=== PATIENT | female | born 1990 | race Caucasian/White ===

== ENCOUNTER 2024-06-08 17:37 | Emergency (ER) | payer MEDICAID ==
[~2024-06-08] VITALS: Ht 172.7 cm; Wt 68.0 kg
[~2024-06-08 17:37] MED LIST: PROZAC PO
[2024-06-08] MEDS ORDERED: NAPR500T6 PO (20:04)
[2024-06-08 20:09] VITALS: BP 133/69; O2SAT 99
== END 2024-06-08 20:10 | disposition home or self-care (01) ==
LOC: ER 17:37
DX: S73.191A Other sprain of right hip, initial encounter (principal); F32.A Depression, unspecified; G89.29 Other chronic pain; X58.XXXA Exposure to other specified factors, initial encounter; Y93.89 Activity, other specified; Y92.89 Other specified places as the place of occurrence of the external cause; Y99.8 Other external cause status
CPT/HCPCS: 72192; A4606; A4663

== ENCOUNTER 2024-10-11 03:55 | Emergency (ER) | payer MEDICAID ==
[~2024-10-11] VITALS: Ht 172.7 cm; Wt 61.2 kg
[~2024-10-11 03:55] MED LIST changes: +NAPR500T6 PO
[2024-10-11] MEDS ORDERED: ONDANSETRON 4 MG/2 ML VIAL ONE (04:34)
[2024-10-11 04:46] LABS: BASOPHILS % (AUTO) 0.3 % (0.0-2.0); EOSINOPHILS # (AUTO) 0.1 K/uL (0.0-0.7); EOSINOPHILS % (AUTO) 1.5 % (0.0-7.0); HEMATOCRIT 42.2 % (31.2-41.9); HEMOGLOBIN 13.9 g/dL (10.9-14.3); LYMPHOCYTES # (AUTO) 0.5 K/uL (0.8-4.8); LYMPHOCYTES % (AUTO) 6.9 % (20.5-51.5); MEAN CORPUSCULAR HEMOGLOBIN 29.7 uug (24.7-32.8); MEAN CORPUSCULAR HGB CONC 33 g/dL (32.3-35.6); MEAN CORPUSCULAR VOLUME 90.5 fL (75.5-95.3); MONOCYTES # (AUTO) 0.6 K/uL (0.1-1.30); MONOCYTES % (AUTO) 8.3 % (0.0-11.0); NEUTROPHILS # (AUTO) 5.6 K/uL (1.8-8.9); PLATELET COUNT (AUTO) 270 K/uL (179-408); RED BLOOD CELL COUNT(AUTO) 4.66 MIL/uL (3.63-4.92); RED CELL DISTRIBUTION WIDTH 13.2 % (12.3-17.7); WHITE BLOOD COUNT (AUTO) 6.8 K/uL (3.8-11.8)
[2024-10-11 04:49] LABS: DIFFERENTIAL COMMENT 1
[2024-10-11 04:54] LABS: CARBON DIOXIDE 30 mmol/L (21-32); CHLORIDE 104 mmol/L (98-107); GLUCOSE 97 mg/dL (74-106); POTASSIUM 3.3 mmol/L (3.5-5.1); SODIUM SERUM 140 mmol/L (136-145); UREA NITROGEN, BLOOD 16 mg/dL (7-18)
[2024-10-11 04:57] LABS: ETHANOL < 3 MG/DL (0-10)
[2024-10-11 05:00] LABS: ALANINE AMINOTRANSFERASE 18 U/L (14-59); ALBUMIN 3.7 g/dL (3.4-5.0); ALKALINE PHOSPHATASE 70 U/L (50-136); ASPARTATE AMINOTRANSFERASE 21 U/L (15-37); BILIRUBIN,TOTAL 0.4 mg/dL (0.2-1.0); LIPASE 24 U/L (16-77); TOTAL PROTEIN, SERUM 7.3 g/dL (6.4-8.2)
[2024-10-11] MEDS: IV NS 1000 ML 1,000 ML IV ONE (05:04)
[2024-10-11] MEDS: ONDANSETRON 4 MG/2 ML VIAL IV ONE (05:04)
[2024-10-11] MEDS ORDERED: POTASSIUM CHLORIDE 20 MEQ TAB.PRT.SR ONE (05:25)
[2024-10-11] MEDS: POTASSIUM CHLORIDE 20 MEQ TAB.PRT.SR PO ONE (05:30)
[2024-10-11 06:46] LABS: *URINE HCG, QUAL NEGATIVE (NEGATIVE)
[2024-10-11 06:52] LABS: *CLARITY,URINE CLEAR (CLEAR); *COLOR,URINE YELLOW (YELLOW)
[2024-10-11 06:54] LABS: *BILIRUBIN,URIN 1+ (NEGATIVE); *BLOOD, URINE NEGATIVE (NEGATIVE); *KETONES,URINE TRACE (NEGATIVE); *PROTEIN,URINE 2+ (NEGATIVE); *UROBILINOGEN,URINE 0.2 E.U./dl (NORMAL); UGLUCOSE NEGATIVE (NEGATIVE)
[2024-10-11 06:55] LABS: LEUKOCYTE ESTERASE ,URINE NEGATIVE (NEGATIVE); NITRITE, URINE NEGATIVE (NEGATIVE)
[2024-10-11] MEDS ORDERED: SWABABLE VALVE TRANSFER SET EA MC ONE (06:55)
[2024-10-11] MEDS ORDERED: IOHEXOL 300MG/ML 100 ML INFUS..BTL ONE (06:55)
[2024-10-11] MEDS ORDERED: IV NORMAL SALINE 250 ML IV ONE (06:57)
[2024-10-11 06:59] LABS: *AMPHETAMINE, URINE NEGATIVE (NEGATIVE); *BARBITURATE, URINE NEGATIVE (NEGATIVE); *BENZODIAZEPINE, URINE NEGATIVE (NEGATIVE); *CANNABINOID, URINE NEGATIVE (NEGATIVE); *COCCAINE, URINE NEGATIVE (NEGATIVE); *OPIATE, URINE NEGATIVE (NEGATIVE); *PHENCYCLIDINE SCREEN,URINE NEGATIVE (NEGATIVE); FENTANYL, URINE NEGATIVE (NEGATIVE)
[2024-10-11 07:23] LABS: BACTERIA,URINE MODERATE /HPF (NONE SEEN); CALCIUM OXALATE CRYSTALS,UR MODERATE /HPF (NONE SEEN); SQUAMOUS EPITHELIAL CELL,UR FEW /HPF (NONE SEEN); WBC,URINE 0-3 /HPF (0-3)
[2024-10-11] MEDS ORDERED: ONDA4TAB5 PO (08:10)
[2024-10-11] MEDS ORDERED: PANT20TA2 PO (08:10)
[2024-10-11 08:19] VITALS: BP 102/47; O2SAT 98
== END 2024-10-11 08:20 | disposition home or self-care (01) ==
LOC: ER 03:55
DX: K52.9 Noninfective gastroenteritis and colitis, unspecified (principal); Z79.899 Other long term (current) drug therapy; Z87.09 Personal history of other diseases of the respiratory system; Z87.39 Personal history of other diseases of the musculoskeletal system and connective tissue; Z20.822 Contact with and (suspected) exposure to COVID-19
CPT/HCPCS: 80053; 81001; 84703; 83690; 85025; 87426; 87086; 36415; 74177; 99285; 96361; 96374; 80320; 80307; J2405; Q9967; J7040; A4606; A4663; G0480

== ENCOUNTER 2025-02-17 15:54 | Emergency (ER) | payer MEDICAID, OTHER ==
[~2025-02-17] VITALS: Ht 172.7 cm; Wt 61.2 kg
[~2025-02-17 15:54] MED LIST changes: +ONDA4TAB5 PO; +PANT20TA2 PO
[2025-02-17 16:01] VITALS: BP 110/71
[2025-02-17 16:58] VITALS: BP 108/65; O2SAT 98
== END 2025-02-17 16:58 | disposition home or self-care (01) ==
LOC: ER 16:04
DX: F43.10 Post-traumatic stress disorder, unspecified (principal); M25.551 Pain in right hip; Z79.899 Other long term (current) drug therapy; Z87.01 Personal history of pneumonia (recurrent); Z87.39 Personal history of other diseases of the musculoskeletal system and connective tissue
CPT/HCPCS: A4606; A4663

== ENCOUNTER 2025-02-19 11:52 | Emergency (ER) | payer OTHER ==
[~2025-02-19] VITALS: Ht 172.7 cm; Wt 62.1 kg
[2025-02-19 11:58] VITALS: BP 108/68
[2025-02-19] MEDS ORDERED: DEXT5TAB15 PO ×2 (12:18→12:19)
[2025-02-19] MEDS ORDERED: FLUO40CA8 PO (12:18)
[2025-02-19 12:35] VITALS: BP 108/68; TEMP 97.8; O2SAT 99
== END 2025-02-19 12:37 | disposition home or self-care (01) ==
LOC: ER 11:52
DX: F43.9 Reaction to severe stress, unspecified (principal); Z76.0 Encounter for issue of repeat prescription; Z79.899 Other long term (current) drug therapy; Z87.01 Personal history of pneumonia (recurrent); Z91.148 Patient's other noncompliance with medication regimen for other reason; Z87.39 Personal history of other diseases of the musculoskeletal system and connective tissue
CPT/HCPCS: A4606; A4663